=== PATIENT | female | born 1990 | race African-American/Black ===

== ENCOUNTER 2016-06-24 06:23 | Emergency (ER) ==
[2016-06-24 06:30] VITALS: BP 111/67
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
--- NOTE | 2016-06-24 08:28 | Diag Imaging Result Document ---
PROCEDURE NAME: ELBOW COMPLETE LEFT - 06/24/2016 LEFT ELBOW 3 VIEWS: FINDINGS: There is no evidence of fracture or dislocation. No other definite bony abnormalities are present. IMPRESSION: No acute disease.
--- NOTE | 2016-06-24 08:31 | Diag Imaging Result Document ---
PROCEDURE NAME: WRIST COMPLETE LEFT - 06/24/2016 LEFT WRIST 3 VIEWS: FINDINGS: There is no evidence of fracture or dislocation. No other definite bony abnormalities are present. IMPRESSION: No acute disease.
--- NOTE | 2016-06-24 08:35 | Diag Imaging Result Document ---
PROCEDURE NAME: KNEE 3 VIEWS RIGHT - 06/24/2016 RIGHT KNEE 3 VIEWS: FINDINGS: There is no evidence of fracture or dislocation. No other definite bony abnormalities are present. IMPRESSION: No acute disease.
--- NOTE | 2016-06-24 08:36 | Diag Imaging Result Document ---
PROCEDURE NAME: FOREARM-LEFT - 06/24/2016 LEFT FOREARM 2 VIEWS: FINDINGS: There is no evidence of acute fracture or dislocation. No other definite bony abnormalities are present. IMPRESSION: No acute disease.
== END 2016-06-24 07:37 | disposition home or self-care (01) ==
LOC: P.ED 06:23
DX: M79.632 Pain in left forearm (principal); M25.562 Pain in left knee; V89.2XXA Person injured in unspecified motor-vehicle accident, traffic, initial encounter
CPT/HCPCS: 99283